=== PATIENT | male | born 1990 | race Caucasian/White ===

== ENCOUNTER 2020-11-30 03:26 | Emergency (ER) | payer OTHER ==
[~2020-11-30] VITALS: Ht 170.2 cm; Wt 74.8 kg
[2020-11-30 03:31] VITALS: BP 124/61
== END 2020-11-30 04:37 | disposition home or self-care (01) ==
LOC: ER 03:26
DX: Z20.822 Contact with and (suspected) exposure to COVID-19 (principal)
CPT/HCPCS: 99283; C9803; U0003